=== PATIENT | female | born 1940 | race Caucasian/White ===

== ENCOUNTER 2019-09-07 13:59 | Outpatient (RCR) | payer MEDICARE, MEDICAID, SELFPAY ==
[2019-09-07 14:45] LABS: Alanine Aminotransferase 28 U/L (0-33); Albumin Level 3.5 g/dL (3.5-5.2); Alkaline Phosphatase 112 IU/L (35-105); Anion Gap 16.8 (5-19); Aspartate Amino Transferase 29 U/L (0-32); Blood Urea Nitrogen 11 mg/dL (8-23); Calcium 10.1 mg/dL (8.5-10.5); Carbon Dioxide 23 mmol/L (22-29); Chloride 105 mmol/L (98-107); Chol HDL Ratio 2.18 mg/dL (0.0-4.40); Cholesterol 133 mg/dL (0-200); Free T4 Free Thyroxine 1.29 ng/dL (0.82-1.77); Globulin 3.8 g/dL (1.3-4.6); Glucose 166 mg/dL (74-106); HDL Cholesterol 61 mg/dL (60-100); LDL Cholesterol Calculated 61 mg/dL (50-129); Potassium 3.8 mmol/L (3.5-5.1); Sodium 141 mmol/L (136-145); Thyroid Stimulating Hormone 2.09 uIU/mL (0.27-4.20); Total Bilirubin 0.2 mg/dL (0.15-1.2); Total Protein 7.3 g/dL (6.6-8.7); Triglycerides 55 mg/dL (0-150)
== END 2019-09-15 23:59 | disposition home or self-care (01) ==
LOC: LAB 13:59
PROVIDERS: Family Provider Family Medicine; Visit Provider Nurse Practitioner Family
DX: Z01.89 Encounter for other specified special examinations (principal)
CPT/HCPCS: 80053; 80061; 84439; 84443; 85025

== ENCOUNTER 2019-09-17 14:20 | Emergency (ER) | payer MEDICARE, BC, MEDICAID, SELFPAY ==
[2019-09-17 14:21] VITALS: BP 138/74; PULSE 87; RESP 16; O2SAT 97; BMI 22.6
--- NOTE | 2019-09-17 14:31 | ED_ITS ---
Entered by Radha Molina, acting as scribe for Jennifer Mei MD, [facility] [place] - General Adult General: Chief complaint: Fall Stated complaint: FACIAL BRUISING Time Seen by Provider: 09/17/19 14:31 Source: EMS, RN notes reviewed and other (fdc report) Mode of arrival: EMS Limitations: altered mental status History of Present Illness: HPI narrative: 79 yo female presents to ED with fdc staff complaints of unusual bruising. The patient has raccoon eyes and has dried blood on the R side of her face. She has a goose egg bump on the R side of her forehead. The patient's last reported fall was on 09.06.[address] a head CT at that time (seen at [facility] ER). The patient will not answer or respond to any questions. MD complaint: unusual bruising Onset (ago): week(s) (approximately 2) Location: face Severity: severe Associated symptoms: Reports other (unusual bruising) Treatments prior to arrival: none Review of Systems General: Reports: ROS unobtainable due to mental status PFSH ED PFSH: Statuses (acute, chronic, etc) shown below reflect problem list status as previously entered and may not be historically accurate Social History Smoking and tobacco status: unknown if ever smoked Physical Exam Const: COMMON NORMALS: no apparent distress, average body habitus, no limitations, healthy appearing and well nourished GENERAL APPEARANCE: lethar gic ORIENTATION/CONSCIOUSNESS: Yes lethargic HENMT: COMMON NORMALS: moist oral mucous membranes HEAD & SCALP: abrasion, contusion (forehead and extends to both cheeks) and hematoma (left forehead) Eye: COMMON NORMALS: PERRL, EOMs intact bilaterally, conjunctivae normal and no scleral icterus CONJUNCTIVA: Yes conjunctivae normal PUPIL: Yes PERRL Neck/C-Spine: COMMON NORMALS: full ROM, supple, no meningeal signs, no JVD and no carotid bruits Chest: COMMONS NORMALS: inspection of chest normal and palpation of chest normal Resp: COMMON NORMALS: normal respiratory effort, no retractions, no use of accessory muscles, clear to auscultation bilaterally and percussion normal AUSCULTATION: clear to auscultation bilaterally PERCUSSION: percussion normal Cardio: COMMON NORMALS: no JVD, regular rate, regular rhythm, S1 normal heart sound, S2 normal heart sound, no gallops, no clicks, no murmurs, no rub and peripheral pulses 2+ throughout RATE: regular rate RHYTHM: regular rhythm HEART SOUNDS: S1 normal and S2 normal PERIPHERAL PULSES: pulses 2+ throughout GI: COMMON NORMALS: normal to inspection, nondistended, normoactive bowel sounds, soft to palpation, non-tender, no hepatosplenomegaly, no masses and no bruits PALPATION: Yes soft and Yes no hepatosplenomegaly : COMMON NORMALS: Yes no CVA tenderness BLADDER/KIDNEY EXAM: Yes no CVA tenderness Back/Pelvis: COMMON NORMALS: no CVA tenderness Extremity: COMMON NORMALS: normal to inspection, full ROM, normal capillary refill, no calf tenderness and no pedal edema Neuro: SENSORIUM/ORIENTATION: Yes orientation impaired and Yes lethargic MENINGEAL SIGNS: Yes no meningeal signs Skin: COMMON NORMALS: no rashes or lesions noted, no wounds, skin turgor normal, no jaundice, no petechiae and no mottling GENERAL SKIN EXAM: no rashes or lesions noted and turgor normal Course Consultations: Consultation #1: Discussed with her son, ED. explained her diagnosis-subarachnoid also subdural hemorrhage on the right. Discussed management options with him including transferring to a facility with a neurosurgeon. Has son who is her designated power of deputy attorney general explained that the patient has informed him that she has no desire to live anymore and she is a DNR. Her quality of life currently is poor and he does not think she will benefit from further aggressive management. He also does not want to go against her wishes. Her son is pretty tearful and emotional during this discussion. He believes this is the best thing for her. We will therefore discharge her back to the fdc on hospice/comfort care Time: 16:20 Vital Signs: Vital signs: Vital Signs Pulse Rate 83 09/17/19 18:41 Respiratory Rate 16 09/17/19 18:41 Blood Pressure 108/73 09/17/19 18:41 Pulse Oximetry 92 09/17/19 18:41 MDM - General Adult MDM Narrative: Medical decision making narrative: 79-year-old female patient who is a resident of a fdc and was brought to the emergency department following a fall and altered mental status. She is on Xarelto anticoagulation. Evaluation in the emergency department revealed a subdural and subarachnoid hematoma. After discussion with her son it was decided that the patient should be discharged back to the fdc on comfort measures as a quality of life is poor at this time and the patient has expressed desire not to live anymore. Lab Data: Labs: Lab Results 09/17/19 09/17/19 09/17/19 Range/Units 15:26 15:26 15:26 WBC 6.2 (4.0-10.0) 10^3/ uL RBC 3.90 L (4.1-5.3) 10^6/u L Hgb 11.6 (11.5-15.3) g/dL Hct 37.8 (37.0-47.0) % MCV 96.9 (81-99) fL MCH 29.7 (28.0-34.0) pg MCHC 30.7 (30.0-36.0) g/dL RDW 14.7 (12.1-15.1) % Plt Count 275 (130-400) 10^3/c mm MPV 9.9 (7.4-10.4) fL Neut % (Auto) 68.0 % Lymph % (Auto) 23.5 % Bleckley % (Auto) 7.1 % Eos % (Auto) 0.2 % Baso % (Auto) 1.0 % Neut # (Auto) 4.2 (1.8-7.7) 10^3/u L Lymph # (Auto) 1.5 (0.8-4.8) 10^3/u L Bleckley # (Auto) 0.4 (0.2-0.9) 10^3/u L Eos # (Auto) 0.0 (0.0-0.8) 10^3/u L Baso # (Auto) 0.1 (0.0-0.1) 10^3/u L Nucleated RBC % (a uto) 0 % Nucleated RBCs # 0.0 /100WBC PT 26.40 H (10.5-13.3) SECO NDS INR 2.32 H (0.8-1.2) Sodium 148 H (136-145) mmol/L Potassium 4.0 (3.5-5.1) mmol/L Chloride 109 H (98-107) mmol/L Carbon Dioxide 27 (22-29) mmol/L Anion Gap 16.0 (5-19) BUN 24 H (8-23) mg/dL Creatinine 1.2 H (0.5-0.9) mg/dL Glucose 111 H (74-106) mg/dL Calcium 10.6 H (8.5-10.5) mg/dL Total Bilirubin 0.5 (0.15-1.2) mg/dL AST 37 H (0-32) U/L ALT 32 (0-33) U/L Alkaline Phosphata se 88 (35-105) IU/L Total Protein 7.9 (6.6-8.7) g/dL Albumin 3.8 (3.5-5.2) g/dL Globulin 4.1 (1.3-4.6) g/dL Urine Color (Yellow) Urine Appearance (CLEAR) Urine pH (5-7) Ur Specific Gravit y (1.005-1.030) Urine Protein (Negative) Urine Glucose (UA) (Normal) Urine Ketones (Negative) Urine Occult Blood (Negative) Urine Nitrate (Negative) Urine Bilirubin (NEGATIVE) Urine Urobilinogen (Negative) mg/dL Ur Leukocyte Billie ase (Negative) Urine RBC (0-2) /hpf Urine WBC (0-5) /hpf Ur Squamous Epith Cells (0-5) Urine Bacteria (NONE) 09/17/19 Range/Units 15:43 WBC (4.0-10.0) 10^3/ uL RBC (4.1-5.3) 10^6/u L Hgb (11.5-15.3) g/dL Hct (37.0-47.0) % MCV (81-99) fL MCH (28.0-34.0) pg MCHC (30.0-36.0) g/dL RDW (12.1-15.1) % Plt Count (130-400) 10^3/c mm MPV (7.4-10.4) fL Neut % (Auto) % Lymph % (Auto) % Bleckley % (Auto) % Eos % (Auto) % Baso % (Auto) % Neut # (Auto) (1.8-7.7) 10^3/u L Lymph # (Auto) (0.8-4.8) 10^3/u L Bleckley # (Auto) (0.2-0.9) 10^3/u L Eos # (Auto) (0.0-0.8) 10^3/u L Baso # (Auto) (0.0-0.1) 10^3/u L Nucleated RBC % (a uto) % Nucleated RBCs # /100WBC PT (10.5-13.3) SECO NDS INR (0.8-1.2) Sodium (136-145) mmol/L Potassium (3.5-5.1) mmol/L Chloride (98-107) mmol/L Carbon Dioxide (22-29) mmol/L Anion Gap (5-19) BUN (8-23) mg/dL Creatinine (0.5-0.9) mg/dL Glucose (74-106) mg/dL Calcium (8.5-10.5) mg/dL Total Bilirubin (0.15-1.2) mg/dL AST (0-32) U/L ALT (0-33) U/L Alkaline Phosphata se (35-105) IU/L Total Protein (6.6-8.7) g/dL Albumin (3.5-5.2) g/dL Globulin (1.3-4.6) g/dL Urine Color Yellow (Yellow) Urine Appearance Hazy A (CLEAR) Urine pH 6 (5-7) Ur Specific Gravit y 1.020 (1.005-1.030) Urine Protein 1+ H (Negative) Urine Glucose (UA) Norm (Normal) Urine Ketones Negative (Negative) Urine Occult Blood 2+ H (Negative) Urine Nitrate Negative (Negative) Urine Bilirubin Neg (NEGATIVE) Urine Urobilinogen Norm (Negative) mg/dL Ur Leukocyte Billie ase 2+ H (Negative) Urine RBC 25-40 H (0-2) /hpf Urine WBC Too numerous to c nt H (0-5) /hpf Ur Squamous Epith Cells 0-4 H (0-5) Urine Bacteria 4+ H (NONE) Imaging Data^: Other CT: Radiologist's impression: [address] [address] [address] Scan Report Signed Patient: Jamel Mendoza #: [id number] : 1Acct#:[id number] Age/Sex: 79 / FADM Date: 09/17/19 Loc: ERRoom/Bed: Attending Dr: Ordering Provider/Ordering MD: Jennifer Mei MD, [facility] [place] Date of Service: 09/17/19 Procedure(s): CT cervical spin wo con* [id number] Accession Number(s): [id number] Report Number: [id number] PROCEDURE INFORMATION: Exam: CT Cervical Spine Without Contrast Exam date and time: 09/17/2019 2:52 PM Age: 79 years old Clinical indication: Injury or trauma; Initial encounter; Blunt trauma; Injury details: Fall, today. On blood thinners. Bruising to right orbit , forehead and left maxilla TECHNIQUE: Imaging protocol: Computed tomography images of the cervical spine without contrast. Total DLP: 273.48 mGy-cm Radiation optimization: All CT scans at this facility use at least one of these dose optimization techniques: automated exposure control; mA and/or kV adjustment per patient size (includes targeted exams where dose is matched to clinical indication); or iterative reconstruction. COMPARISON: No relevant prior studies available. FINDINGS: Vertebrae: Grade 1 anterolisthesis of C4 over C5 and C7 over T1. There is partial fusion of C3-C4 and C4-C5 vertebrae, likely degenerative. Discs/Spinal canal/Neural foramina: No disc herniations. No spinal canal stenosis. No neural foraminal narrowing. Other bones/joints: Diffuse demineralization of the bones. Soft tissues: Unremarkable. Lungs: Calcified granuloma in the left lung apex. CT/CT cervical spin wo con* [id number] IMPRESSION: No acute abnormality. Extensive degenerative changes in the cervical spine as described above. Radiation Dose CTDIVOL = (mGy): DLP = 273.48 (mGy-cm) Dictated By:Guillermo Newman MD Signed By:Guillermo Newman MDSigned Date/Time:09/17/19 1552 DD/ CT Head: Radiologist's impression: [address] [place] [address] CT Scan Report Signed Patient: Jamel Mendoza #: [id number] : 1Acct#:[id number] Age/Sex: 79 / FADM Date: 09/17/19 Loc: ERRoom/Bed: Attending Dr: Ordering Provider/Ordering MD: Jennifer Mei MD, [facility] [place] of Service: 09/17/19 Procedure(s): CT head wo con* [id number] Accession Number(s): [id number] Report Number: [id number] PROCEDURE INFORMATION: Exam: CT Head Without Contrast Exam date and time: 09/17/2019 2:52 PM Age: 79 years old Clinical indication: Injury or trauma; Injury details: Fall today. On blood thinners. Bruising to right orbital, forehead and left maxilla; Prior surgery; Surgery type: Cabg; Additional info: Fall, on anticoagulation TECHNIQUE: Imaging protocol: Computed tomography of the head without contrast. Total DLP: 1220.7 mGy-cm Radiation optimization: All CT scans at this facility use at least one of these dose optimization techniques: automated exposure control; mA and/or kV adjustment per patient size (includes targeted exams where dose is matched to clinical indication); or iterative reconstruction. COMPARISON: CT head wo con* [id number] 04/19/2016 5:50 PM FINDINGS: Brain: Subarachnoid hemorrhage in the right parietal region. Right tentorial leaflet subdural hematoma measuring 2 mm its maximum. There are moderate periventricular and subcortical lucencies consistent with chronic microvascular ischemic changes. Ventricles: Normal. No ventriculomegaly. Bones/joints: Unremarkable. No acute fracture. Sinuses: Mucosal thickening of the right maxillary sinus. Mastoid air cells: Visualized mastoid air cells are well aerated. Orbits: Bilateral cataract surgery. Soft tissues: Hematoma in the the right frontal scalp. CT/CT head wo con* [id number] IMPRESSION: Acute subarachnoid hemorrhage in the right parietal lobe. Acute subdural hemorrhage in the right tentorial leaflet. THIS REPORT CONTAINS FINDINGS THAT MAY BE CRITICAL TO PATIENT CARE. The findings were verbally communicated via telephone conference with JENNIFER MEI at 3:47 PM METALWORKER on 09/17/2019. The findings were acknowledged and understood. Radiation Dose CTDIVOL = (mGy): DLP = 1220.7 (mGy-cm) Dictated By:Guillermo Newman MD Signed By:Guillermo Newman MDSigned Date/Time:09/17/19 1547 DD/ Discharge Plan Discharge Patient Disposition: [facility] Fac Not MCR w Plan Readm Clinical Impression: Subarachnoid hemorrhage, Acute subdural hematoma Condition: Stable Prescriptions: New lorazepam 2 mg/mL concentrate 0.5 mg PO Q4H PRN (Reason: agitation) Qty: 30 RF: 0 morphine 20 mg/5 mL (4 mg/mL) solution 5 mg PO Q3H PRN (Reason: pain) Qty: 100 RF: 0 Discharge Orders: Discharge Order (Routine); Ordered 09/17/19 Ordered By: Jennifer Mei Referrals: Kelvin Swann [Family Provider] - 1-3 days Patient Instructions: Subdural Hematoma (ED), Subarachnoid Hemorrhage (GEN) Activity Restrictions/Additional Instructions: Return for any new or worsening symptoms. Follow-up with your primary care provider within 3 days. She needs to be started on hospice or comfort care per the desire of her designated power of deputy attorney general. Kindly initiate this. Discontinue her Xarelto. Discontinue her other medications as ordered by her primary care Coding Level of Care Code ED Yardage Estimator for Chg Fwd Exam Problem Focused The documentation recorded by the Tracy garcia Valerie R, accurately reflects the service I personally performed and the decisions made by Vivian shrestha Adegoke I, MD, [facility] [place] Sep 17, 2019 14:20
[2019-09-17 14:48] VITALS: BP 134/76; PULSE 83; RESP 15; O2SAT 98
--- NOTE | 2019-09-17 14:48 | CTR_ITS ---
PROCEDURE INFORMATION: Exam: CT Head Without Contrast Exam date and time: 09/17/2019 2:52 PM Age: 79 years old Clinical indication: Injury or trauma; Injury details: Fall today. On blood thinners. Bruising to right orbital, forehead and left maxilla; Prior surgery; Surgery type: Cabg; Additional info: Fall, on anticoagulation TECHNIQUE: Imaging protocol: Computed tomography of the head without contrast. Total DLP: 1220.7 mGy-cm Radiation optimization: All CT scans at this facility use at least one of these dose optimization techniques: automated exposure control; mA and/or kV adjustment per patient size (includes targeted exams where dose is matched to clinical indication); or iterative reconstruction. COMPARISON: CT head wo con* [id number] 04/19/2016 5:50 PM FINDINGS: Brain: Subarachnoid hemorrhage in the right parietal region. Right tentorial leaflet subdural hematoma measuring 2 mm its maximum. There are moderate periventricular and subcortical lucencies consistent with chronic microvascular ischemic changes. Ventricles: Normal. No ventriculomegaly. Bones/joints: Unremarkable. No acute fracture. Sinuses: Mucosal thickening of the right maxillary sinus. Mastoid air cells: Visualized mastoid air cells are well aerated. Orbits: Bilateral cataract surgery. Soft tissues: Hematoma in the the right frontal scalp. CT/CT head wo con* [id number] IMPRESSION: Acute subarachnoid hemorrhage in the right parietal lobe. Acute subdural hemorrhage in the right tentorial leaflet. THIS REPORT CONTAINS FINDINGS THAT MAY BE CRITICAL TO PATIENT CARE. The findings were verbally communicated via telephone conference with ALEXI MEI at 3:47 PM BEET END SUPERVISOR on 09/17/2019. The findings were acknowledged and understood. Radiation Dose CTDIVOL = (mGy): DLP = 1220.7 (mGy-cm)
--- NOTE | 2019-09-17 14:48 | CTR_ITS ---
PROCEDURE INFORMATION: Exam: CT Cervical Spine Without Contrast Exam date and time: 09/17/2019 2:52 PM Age: 79 years old Clinical indication: Injury or trauma; Initial encounter; Blunt trauma; Injury details: Fall, today. On blood thinners. Bruising to right orbit , forehead and left maxilla TECHNIQUE: Imaging protocol: Computed tomography images of the cervical spine without contrast. Total DLP: 273.48 mGy-cm Radiation optimization: All CT scans at this facility use at least one of these dose optimization techniques: automated exposure control; mA and/or kV adjustment per patient size (includes targeted exams where dose is matched to clinical indication); or iterative reconstruction. COMPARISON: No relevant prior studies available. FINDINGS: Vertebrae: Grade 1 anterolisthesis of C4 over C5 and C7 over T1. There is partial fusion of C3-C4 and C4-C5 vertebrae, likely degenerative. Discs/Spinal canal/Neural foramina: No disc herniations. No spinal canal stenosis. No neural foraminal narrowing. Other bones/joints: Diffuse demineralization of the bones. Soft tissues: Unremarkable. Lungs: Calcified granuloma in the left lung apex. CT/CT cervical spin wo con* [id number] IMPRESSION: No acute abnormality. Extensive degenerative changes in the cervical spine as described above. Radiation Dose CTDIVOL = (mGy): DLP = 273.48 (mGy-cm)
[2019-09-17 15:34] LABS: Basophils # 0.1 10^3/uL (0.0-0.1); Eosinophils % 0.2 %; Hematocrit 37.8 % (37.0-47.0); Hemoglobin 11.6 g/dL (11.5-15.3); Lymphocytes # 1.5 10^3/uL (0.8-4.8); Lymphocytes % 23.5 %; Mean Corpuscular HGB Conc 30.7 g/dL (30.0-36.0); Mean Corpuscular Hemoglobin 29.7 pg (28.0-34.0); Mean Corpuscular Volume 96.9 fL (81-99); Mean Platelet Volume 9.9 fL (7.4-10.4); Monocytes # 0.4 10^3/uL (0.2-0.9); Monocytes % 7.1 %; Neutrophils # 4.2 10^3/uL (1.8-7.7); Nucleated Red Blood Cells % 0 %; Platelet Count 275 10^3/cmm (130-400); Red Cell Distribution Width 14.7 % (12.1-15.1); White Blood Count 6.2 10^3/uL (4.0-10.0)
[2019-09-17 15:48] LABS: INR 2.32 (0.8-1.2)
[2019-09-17 15:58] LABS: Alanine Aminotransferase 32 U/L (0-33); Albumin Level 3.8 g/dL (3.5-5.2); Alkaline Phosphatase 88 IU/L (35-105); Aspartate Amino Transferase 37 U/L (0-32); Blood Urea Nitrogen 24 mg/dL (8-23); Calcium 10.6 mg/dL (8.5-10.5); Carbon Dioxide 27 mmol/L (22-29); Chloride 109 mmol/L (98-107); Globulin 4.1 g/dL (1.3-4.6); Glucose 111 mg/dL (74-106); Sodium 148 mmol/L (136-145); Total Bilirubin 0.5 mg/dL (0.15-1.2); Total Protein 7.9 g/dL (6.6-8.7)
[2019-09-17 16:01] VITALS: RESP 18
[2019-09-17] MEDS: morphine 4 mg/mL SDV 1 mL 2 MG IVP ×2 (16:01→18:00)
[2019-09-17 16:30] LABS: Blood Urine 2+ (Negative); Glucose Urine UA Norm (Normal); Ketones Urine Negative (Negative); Nitrate Urine Negative (Negative); Protein Urine 1+ (Negative); Urine Appearance Hazy (CLEAR); Urine Color Yellow (Yellow); pH Urine 6 (5-7)
[2019-09-17 16:31] LABS: Add Urine Microscopic? YES; Bilirubin Urine Neg (NEGATIVE); Leukocyte Esterase Urine 2+ (Negative); Urobilinogen Urine Norm (Negative)
[2019-09-17 16:34] LABS: Bacteria Urine 4+; RBC Urine 25-40 /hpf (0-2); Squamous Epithelial Cell Urine 0-4 (0-5); WBC Urine TOO NUMEROUS TO CNT /hpf (0-5)
[2019-09-17 16:36] LABS: Add Urine Culture? Yes
[2019-09-17 18:00] VITALS: RESP 17
[2019-09-17 18:41] VITALS: BP 108/73; PULSE 83; RESP 16; O2SAT 92
--- NOTE | 2019-09-18 00:08 | PC.NURSE ---
Patient laying in bed at this time, she is chanting Momma, momma, momma, momma . When asked if patient was asked if she was hurting. Patient stated Take the covers off . Blankets removed at this time.
[2019-09-18 00:15] VITALS: RESP 18
[2019-09-18] MEDS: morphine 4 mg/mL SDV 1 mL IVP (00:15)
[2019-09-18 02:26] VITALS: PULSE 76; RESP 18; O2SAT 93
[2019-09-18 04:00] VITALS: PULSE 73; RESP 18; O2SAT 90
[2019-09-18 06:00] VITALS: PULSE 77; RESP 16; O2SAT 92
[2019-09-18 07:02] VITALS: PULSE 78; RESP 16; O2SAT 90
--- NOTE | 2019-09-18 07:03 | PC.NURSE ---
Report called to [facility], spoke to BRAULIO Haynes.
--- NOTE | 2019-09-19 14:58 | DCPLANNER ---
audio visual project manager had message to speak with patients family about hospice care. audio visual project manager called number on face sheet and it was the nursing facility where patient is living. audio visual project manager asked about patient being on hospice, behavioral health case manager was told that patient is on hospice with [facility].
== END 2019-09-18 08:15 ==
PROVIDERS: Emergency Provider Family Medicine; Family Provider Family Medicine
DX: S06.6X9A Traumatic subarachnoid hemorrhage with loss of consciousness of unspecified duration, initial encounter (principal); S06.5X9A Traumatic subdural hemorrhage with loss of consciousness of unspecified duration, initial encounter; W19.XXXA Unspecified fall, initial encounter; R41.82 Altered mental status, unspecified
CPT/HCPCS: 36415; 70450; 72125; 80053; 81001; 85025; 85610; 87077; 87086; 87186; 96374; 96376; 99284; A9270; J2270